=== PATIENT | male | born 1975 | race Caucasian/White ===

== ENCOUNTER 2022-08-11 14:25 | Emergency (ER) | payer MEDICAID, OTHER ==
[~2022-08-11] VITALS: Ht 167.6 cm; Wt 134.1 kg
[~2022-08-11 14:25] MED LIST: ASPI-1444 PO; CARV6 PO; FURO20 PO; LISI-893 PO; METF-1211 PO; POTA8TAB71 PO
[2022-08-11] MEDS ORDERED: EZET10TA57 PO (14:36)
[2022-08-11] MEDS ORDERED: SEMA2PEN SQ (14:36)
[2022-08-11 16:30] LABS: COVID AG,FIA SOURCE NASOPHARYNGEAL
[2022-08-11 16:49] LABS: BASOPHILS % (AUTO) 1.2 % (0.0-2.0); EOSINOPHILS % (AUTO) 1.6 % (1.0-6.0); HEMATOCRIT 45.5 % (41-53); HEMOGLOBIN 14.7 g/dL (13.5-17.5); LYMPHOCYTES # (AUTO) 1.8 K/uL (1.0-4.8); LYMPHOCYTES % (AUTO) 27.1 % (22.0-44.0); MEAN CORPUSCULAR HEMOGLOBIN 27.8 pg (26.0-34.0); MEAN CORPUSCULAR HGB CONC 32.4 G/dL (31.0-37.0); MEAN CORPUSCULAR VOLUME 86 fL (80-100); MONOCYTES # (AUTO) 0.6 K/uL (0.1-1.0); MONOCYTES % (AUTO) 9.4 % (2.0-9.0); NEUTROPHILS # (AUTO) 3.9 K/uL (1.8-7.7); NEUTROPHILS % (AUTO) 60.7 % (40.0-70.0); PLATELET COUNT (AUTO) 245 K/uL (150-450); RED CELL DISTRIBUTION WIDTH 14.4 % (11.5-14.5)
[2022-08-11 16:59] LABS: ANION GAP 11 mmol/L (8-16); CALCIUM, TOTAL 9.3 mg/dL (8.8-10.5); CARBON DIOXIDE 27 mmol/L (22-29); CHLORIDE 103 mmol/L (98-107); CREATININE 0.94 mg/dL (0.60-1.30); GLOMERULAR FILTR. RATE CALC > 60 mL/min (>60); GLUCOSE,RANDOM 115 mg/dL (70-110); POTASSIUM 3.5 mmol/L (3.5-5.1); SODIUM SERUM 141 mmol/L (136-145); UREA NITROGEN, BLOOD 10 mg/dL (7-18)
[2022-08-11 17:06] LABS: B-TYPE NATRIURETIC PEPTIDE 81 pg/mL (0-100)
[2022-08-11 17:08] LABS: ALANINE AMINOTRANSFERASE 27 U/L (12-78); ALBUMIN 4.2 g/dL (3.4-5.0); ALKALINE PHOSPHATASE 55 U/L (46-116); ASPARTATE AMINOTRANSFERASE 21 U/L (15-37); BILIRUBIN,TOTAL 0.8 mg/dL (0.1-1.0); TOTAL PROTEIN, SERUM 7.5 g/dL (6.4-8.2)
[2022-08-11 17:17] VITALS: BP 152/108
== END 2022-08-11 17:44 | disposition home or self-care (01) ==
LOC: EMS 14:27
DX: R07.89 Other chest pain (principal); I42.9 Cardiomyopathy, unspecified; R00.2 Palpitations; E11.9 Type 2 diabetes mellitus without complications; I10 Essential (primary) hypertension; Z20.822 Contact with and (suspected) exposure to COVID-19
CPT/HCPCS: 71045; 80053; 83880; 84484; 85025; 93005; 99285; 36415-L1; 36415-TC

== ENCOUNTER 2024-02-16 05:14 | Day surgery (SDC) | payer OTHER ==
[~2024-02-16] VITALS: Ht 167.6 cm; Wt 140.0 kg
[~2024-02-16 05:14] MED LIST changes: -ASPI-1444 PO; +CYCLOPENTOLATE HCL 1% 2 ML OPHTHALMIC SOLUTION ONE; +EZET10TA57 PO; +KETOROLAC TROMETHAMINE 0.5% 5 ML OPHTHALMIC SOLUTION ONE; +MOXIFLOXACIN HCL 0.5% 3 ML OPHTHALMIC SOLUTION ONE; +PHENYLEPHRINE HCL 2.5% 2 ML OPHTHALMIC SOLUTION ONE; +RINGERS SOLUTION,LACTATED 500 ML IV ONE; +SEMA2PEN SQ; +TETRACAINE HCL/PF 0.5% 4 ML OPHTHALMIC SOLUTION ONE; +TROPICAMIDE 1% 2 ML OPHTHALMIC SOLUTION ONE
[2024-02-16] MEDS: TROPICAMIDE 1% 2 ML OPHTHALMIC SOLUTION OS SCH (06:01)
[2024-02-16] MEDS: TETRACAINE HCL/PF 0.5% 4 ML OPHTHALMIC SOLUTION OS SCH (06:01)
[2024-02-16] MEDS: CYCLOPENTOLATE HCL 1% 2 ML OPHTHALMIC SOLUTION OS SCH (06:01)
[2024-02-16] MEDS: PHENYLEPHRINE HCL 2.5% 2 ML OPHTHALMIC SOLUTION OS SCH (06:01)
[2024-02-16] MEDS: MOXIFLOXACIN HCL 0.5% 3 ML OPHTHALMIC SOLUTION OS SCH (06:02)
[2024-02-16] MEDS: KETOROLAC TROMETHAMINE 0.5% 5 ML OPHTHALMIC SOLUTION OS SCH (06:02)
[2024-02-16 06:11] LABS: GLUCOMETER DEV NAME(LOC) SDS.; GLUCOSE,POINT OF CARE 143 MG/DL (70-110)
[2024-02-16] MEDS: RINGERS SOLUTION,LACTATED 500 ML IV ONE (06:20)
[2024-02-16] MEDS ORDERED: MIDAZOLAM HCL 2 MG/2 ML VIAL ONE (06:37)
[2024-02-16] MEDS ORDERED: FentaNYL CITRATE PF 100 MCG/2 ML VIAL ONE (06:37)
[2024-02-16] MEDS ORDERED: HYALURONATE SOD 8.5MG/0.85ML 10 MG/ML SYRINGE IO ONE (06:37)
[2024-02-16] MEDS ORDERED: PrednisoLONE ACETATE 1% 5 ML OPHTHALMIC SUSPENSION ONE (06:43)
[2024-02-16] MEDS: BALANCED SALT 15 ML OPHTHALMIC IRRIG.SOLN ONE (09:58)
[2024-02-16] MEDS: EPINEPHrine 1:1,000 [1 MG/ML] VIAL ONE (09:58)
[2024-02-16] MEDS: LIDOCAINE/PF 1% 2 ML VIAL ONE (09:59)
[2024-02-16] MEDS: PROPARACAINE HCL 0.5% 15 ML OPHTHALMIC SOLUTION ONE (10:00)
[2024-02-16] MEDS: NEOMYCIN/POLYMYXIN B/DEXAMETH 3.5 GM OPHTHALMIC OINTMENT ONE (10:00)
[2024-02-16] MEDS: POVIDONE-IODINE 5% 30 ML OPHTHALMIC SOLUTION ONE (10:00)
== END 2024-02-16 09:10 | disposition home or self-care (01) ==
LOC: SURGERY 05:14
PROVIDERS: ATTEND Ophthalmology
DX: E11.36 Type 2 diabetes mellitus with diabetic cataract (principal); H25.12 Age-related nuclear cataract, left eye; R94.31 Abnormal electrocardiogram [ECG] [EKG]; I50.9 Heart failure, unspecified; E66.9 Obesity, unspecified; Z98.41 Cataract extraction status, right eye; Z68.42 Body mass index [BMI] 45.0-49.9, adult
CPT/HCPCS: 66984; 82962; 93005; J0171; J3010; J3490; J2250; J7120; V2632